=== PATIENT | male | born 1965 | race Two or more races ===

== ENCOUNTER 2017-12-14 07:40 | Day surgery (SDC) | payer OTHER ==
[~2017-12-14 07:40] MED LIST: VITAFOL FE+ DO1 EACH PO
== END 2017-12-14 16:47 | disposition home or self-care (01) ==
LOC: CIR.AMB 07:40
DX: K64.8 Other hemorrhoids (principal)

== ENCOUNTER 2021-01-22 10:45 | Outpatient (CLI) | payer OTHER | END 2021-01-22 10:46 | disposition home or self-care (01) | LOC: NUCLEAR 10:45 | PROVIDERS: ATTEND Internal Medicine Geriatric Medicine | DX: I11.9 Hypertensive heart disease without heart failure (principal) ==

== ENCOUNTER 2021-02-02 10:36 | Outpatient (CLI) | payer OTHER | END 2021-02-02 10:50 | disposition home or self-care (01) | LOC: SONOGRAMA 10:36 → MAMO-SONO 10:45 → SONOGRAMA 10:50 | PROVIDERS: ATTEND Internal Medicine Geriatric Medicine | DX: N28.89 Other specified disorders of kidney and ureter (principal); N19 Unspecified kidney failure; N00.8 Acute nephritic syndrome with other morphologic changes ==

== ENCOUNTER 2021-04-28 07:44 | Outpatient (CLI) | payer OTHER | END 2021-04-28 13:27 | disposition home or self-care (01) | LOC: NUCLEAR 07:44 | PROVIDERS: ATTEND Internal Medicine Cardiovascular Disease | DX: R07.89 Other chest pain (principal) | CPT/HCPCS: 78452; 93017; A9500 ==